=== PATIENT | female | born 1980 | race Caucasian/White ===

== ENCOUNTER → 2019-01-21 | Day surgery (SDC) | payer OTHER ==
[~2019-01-21] MED LIST: ADDERALL 5 MG TA5 M1 PO; CHANTIX1 MG PO; CLONAZEPAM 1 MG1 M1 PO; ERGOCALCIF50000 UNIT PO; LEXAPRO20 MG PO; NORCO 5-325 TA1 EACH PO; PROAIR HFA8.5 GM INH; REQUIP 1 MG TABL1 M1 PO; SINGULAIR 10 MG10 M1 PO; VITAMIN D PO
--- NOTE | ~2019-01-21 | OP ---
[facility] [address] [place] [address] OPERATIVE REPORT Name: HARISH SAINZ Room: [facility].#: [id number] Admission: 01/21/19 Attend Phys: Addi Christian Discharge: Date of : 82 Report #: [id number] THIS REPORT FOR: //name// CC: Deisy Christian DATE OF SERVICE: 01/21/2019 PREOPERATIVE DIAGNOSIS: Chronic cholecystitis. POSTOPERATIVE DIAGNOSIS: Chronic cholecystitis. PROCEDURE: Laparoscopic cholecystectomy. SURGEON: Addi Christian MD ANESTHESIA: General. ESTIMATED BLOOD LOSS: Minimal. SPECIMENS: Gallbladder. DESCRIPTION OF PROCEDURE: After informed consent was obtained, the patient was brought to the operating room and placed supine. SCDs were placed and working, preoperative antibiotics were administered, general anesthesia was induced. The abdomen was prepped and draped in the usual sterile fashion. A 10 mm incision was made above the umbilicus. Fascia was incised. Trocar was placed. Pneumoperitoneum established. Three right upper quadrant 5 mm ports were placed. Gallbladder was grasped at the fundus and retracted cephalad. Infundibulum was grasped and retracted laterally. I dissected out the cystic duct and cystic artery. Cystic duct and artery were clipped and ligated, leaving 2 clips in the remaining duct and one in the remaining artery. Gallbladder was then taken off the liver bed with electrocautery. It was placed into an Endopouch and removed. The fascia was closed with a [id number] 0 Vicryl. Skin was closed with 4-0 Monocryl. Incisions were sealed with Dermabond. COMPLICATIONS: None. DISPOSITION: The patient was taken to recovery in satisfactory condition. By: [id number] Christian MD /nt
[2019-01-21 06:53] LABS: HEMATOCRIT 40.9 % (37.0-47.0); HEMOGLOBIN 13.7 gm/dL (12.0-15.0)
[2019-01-21 08:41] LABS: ALBUMIN 2.1 g/dL (3.4-5.0); CALCIUM 7.6 mg/dL (8.5-10.1); CREATININE 0.5 mg/dL (0.6-1.3); POTASSIUM 4.1 mmol/L (3.5-5.1); TOTAL BILIRUBIN 0.2 mg/dL (<0.1-1.0); TOTAL PROTEIN 4.4 g/dL (6.4-8.2)
== END | disposition home or self-care (01) ==
LOC: M.SUR 05:56
PROVIDERS: Surgery
DX: K81.1 Chronic cholecystitis (principal); Z79.899 Other long term (current) drug therapy

== ENCOUNTER 2020-07-23 08:09 | Emergency (ER) | payer OTHER ==
[~2020-07-23] VITALS: Ht 165.1 cm; Wt 108.9 kg
[2020-07-23] MEDS ORDERED: ARIPIPRAZOLE5 MG PO (08:16)
[2020-07-23] MEDS ORDERED: MEDROLDOSEPACK PO (09:25)
[2020-07-23] MEDS ORDERED: PROAIR HFA8.5 GM INH (09:25)
[2020-07-23 09:51] VITALS: BP 130/77
== END 2020-07-23 09:52 | disposition home or self-care (01) ==
LOC: M.ERS 08:09
DX: J45.901 Unspecified asthma with (acute) exacerbation (principal); Z79.899 Other long term (current) drug therapy